=== PATIENT | male | born 1990 | race Caucasian/White ===

== ENCOUNTER 2023-10-04 10:08 | Emergency (ER) | payer SELFPAY ==
[2023-10-04 10:26] VITALS: BP 117/78; PULSE 115; RESP 18; TEMP 98.7; BMI 29.0
[2023-10-04] MEDS ORDERED: ACETAMINOPHEN 325 MG TABLET (FP) ONE (13:08)
[2023-10-04] MEDS: ACETAMINOPHEN 500 MG TABLET (FP) PO ONE (13:14)
== END 2023-10-04 13:52 | disposition home or self-care (01) ==
LOC: JER 10:08
DX: S01.81XA Laceration without foreign body of other part of head, initial encounter (principal); W19.XXXA Unspecified fall, initial encounter
CPT/HCPCS: 70450-TC; 70486-TC; 72125-TC; 99284-25